=== PATIENT | female | born 1960 | race Caucasian/White ===

== ENCOUNTER 2017-01-20 06:52 | Day surgery (SDC) | payer BC ==
[2017-01-17 13:47] VITALS: BMI 31.2
[2017-01-20] MEDS ORDERED: MIDAZOLAM HCL 2 MG/2 ML SINGLE DOSE VIAL ONE (08:31)
[2017-01-20] MEDS ORDERED: PROPOFOL 20 ML ONE ×2 (08:31)
[2017-01-20] MEDS ORDERED: ceFAZolin SODIUM 1 GM VIAL ONE (09:27)
[2017-01-20] MEDS ORDERED: ONDANSETRON 4 MG/2 ML VIAL ONE ×2 (09:35→10:22)
[2017-01-20] MEDS ORDERED: KETOROLAC TROMETHAMINE 30 MG/1 ML VIAL ONE (09:35)
[2017-01-20] MEDS ORDERED: DEXAMETHASONE SOD PHOSPHATE 4 MG/1 ML VIAL ONE (09:35)
[2017-01-20] MEDS ORDERED: BUPIVACAINE HCL/PF 0.25% (2.5MG/ML) 10 ML VIAL IJ ONE (09:51)
[2017-01-20] MEDS ORDERED: LACTATED RINGERS SOLUTION 1,000 ML IV SCH (10:15)
[2017-01-20] MEDS ORDERED: ONDANSETRON 4 MG/2 ML VIAL IVPUSH PRN (10:20)
[2017-01-20] MEDS ORDERED: oxyCODONE HCL 5 MG TABLET PO PRN (10:20)
[2017-01-20 11:24] VITALS: TEMP 97.7
[2017-01-20 12:13] VITALS: BP 130/75; PULSE 61
--- NOTE | 2017-01-22 21:17 | OP ---
DATE OF OPERATION: 01/20/2017 LOCATION: [facility] SURGEON: Melchor Hatfield MD E COMMERCE DIRECTOR: CINDY Oakes PREOPERATIVE DIAGNOSES: 1. Left knee medial and lateral meniscal tear. 2. Left knee cartilage injury. 3. Left knee synovitis. POSTOPERATIVE DIAGNOSES: 1. Left knee medial and lateral meniscal tear. 2. Left knee cartilage injury. 3. Left knee synovitis. PROCEDURE: 1. Left knee arthroscopy with partial meniscectomy of medial and lateral menisci. 2. Left knee arthroscopy with chondroplasty and abrasion plasty. 3. Left knee arthroscopy with synovectomy (major). CPT CODES: 33108, 27924, 17075. FINDINGS: 1. Medial meniscus body and posterior horn tear. 2. Lateral meniscus posterior horn tear. 3. Synovitis of patellofemoral, medial and lateral notch area. 4. Central grade 2 to 3 cartilage injury, medial femoral condyle and tibial plateau. 5. ACL and PCL intact. 6. Diffuse grade 1 cartilage injury, lateral joint line. 7. Central grade 2 to 4 cartilage injury, patellofemoral trochlea, with grade 1 to 2 changes of patella. PROCEDURE: Informed consent was obtained. The patient was taken to the operating room where the left lower extremity was prepped and draped in a sterile fashion. A tourniquet was placed on the left upper thigh but not inflated. Using standard arthroscopic technique, a lateral incision and portal were made which allowed for introduction of the camera into the suprapatellar bursa. This was then taken to the medial joint line where under direct visualization, a medial incision and portal were made. Excessive synovium noted in the medial, lateral, patellofemoral and notch area was removed by the up-biting shaver and Bovie cautery. This was found to bring inflammatory tissue into the joint surface, a source of joint pain and dysfunction. Probing of the medial and lateral meniscus found tears described in the findings. These were removed with an up-biting shaver and taken back to a stable rim. Grade 2-3 degenerative changes were treated with chondroplasty, removing all flaking surfaces with low setting Bovie used along the periphery. Grade 4 changes were treated with abrasion-plasty. All areas of the knee were once again re-examined. The knee was then drained. A single suture was placed on all portals. Sterile dressing was placed. The patient was transferred to the recovery room. Irene [id number]
--- NOTE | 2017-01-23 15:33 | PATH ---
Surgical Pathology Report Patient Name: AGUSTÍN HEATH [facility]. Rec. #: [id number] /Age/Gender: 1960 (Age: 56) / F Account: [id number] Location: [facility] Taken: 01/20/2017 Received: 01/20/2017 Reported: 01/23/2017 Physicians: Melchor Hatfield M.D. Specimen(s) Received LEFT KNEE SHAVINGS Clinical History Internal derangement left knee Final Diagnosis KNEE, LEFT, ARTHROSCOPIC SHAVINGS: FIBROSYNOVIAL TISSUE AND CARTILAGE. Electronically Signed Rosa Leblanc M.D. Gross Description Received in formalin, labeled "left knee shavings," is a 3.5 x 2.4 x 0.3 cm. aggregate of hoover-yellow soft tissue fragments. The specimen is entirely submitted in one cassette. /01/20/201701/20/2017
== END 2017-01-20 12:15 | disposition home or self-care (01) ==
LOC: FASU 06:52
PROVIDERS: ATTEND Orthopaedic Surgery
PROC: 0SBD4ZZ Excision of Left Knee Joint, Percutaneous Endoscopic Approach (ICD-10-PCS; 2017-01-20)
PROC: 0SBD4ZZ Excision of Left Knee Joint, Percutaneous Endoscopic Approach (ICD-10-PCS; 2017-01-20)
PROC: 0SBD4ZZ Excision of Left Knee Joint, Percutaneous Endoscopic Approach (ICD-10-PCS; principal; 2017-01-20 09:38)
DX: S83.242A Other tear of medial meniscus, current injury, left knee, initial encounter (principal); S83.282A Other tear of lateral meniscus, current injury, left knee, initial encounter; S83.8X2A Sprain of other specified parts of left knee, initial encounter; M65.862 Other synovitis and tenosynovitis, left lower leg; X58.XXXA Exposure to other specified factors, initial encounter; Y93.9 Activity, unspecified; Y92.9 Unspecified place or not applicable
CPT/HCPCS: 88304-TC; 94760